=== PATIENT | female | born 1970 | race Caucasian/White ===

== ENCOUNTER → 2017-07-16 | Outpatient (CLI) | payer OTHER | LOC: FIMAGING 07:28 | PROVIDERS: ATTEND Family Medicine | DX: Z12.31 Encounter for screening mammogram for malignant neoplasm of breast (principal); N63 Unspecified lump in breast | CPT/HCPCS: G0202 ==

== ENCOUNTER → 2017-07-31 | Outpatient (CLI) | payer OTHER | LOC: FIMAGING 09:35 | PROVIDERS: ATTEND Family Medicine | DX: R92.8 Other abnormal and inconclusive findings on diagnostic imaging of breast (principal) ==

== ENCOUNTER 2018-10-13 21:12 | Emergency (ER) | payer OTHER ==
[2018-10-13 21:23] VITALS: BP 138/81
[2018-10-13] MEDS ORDERED: BENZOCAINE UNIT DOSE SPRAY HURRICAINE MM ONE (21:40)
[2018-10-13] MEDS ORDERED: LIDOCAINE 2% JELLY 20 ML (UROJECT) ONE (21:40)
--- NOTE | 2018-10-13 21:54 | EDPHY ---
H & P Stated Complaint: CHICKEN STUCK IN THROAT/HX ESOPHAGEAL DILATION X 2 - Personal History LMP (Females 10-55): 15-21 Days Ago Current Tetanus Diphtheria and Acellular Pertussis (TDAP): Yes Tetanus Vaccine Date: 2013 - Medical/Surgical History Hx Asthma: No Hx Chronic Respiratory Disease: No Hx Diabetes: No Hx Cardiac Disease: No Hx Renal Disease: No Hx Cirrhosis: No Hx Alcoholism: No Hx HIV/AIDS: No Hx Splenectomy or Spleen Trauma: No Other PMH: Gerd, Esophageal dilation Dec 2015. - Social History Smoking Status: Never smoked Time Seen by Provider: 10/13/18 21:26 HPI/ROS: CHIEF COMPLAINT: Esophageal foreign body HISTORY OF PRESENT ILLNESS: 48-year-old female prior history of Shotsky ring with prior history of dilatation by Dr. Dat Gonzalez October 2016 was eating chicken this evening, feels esophageal foreign body. Unable to swallow her saliva. PRIMARY CARE PROVIDER: REVIEW OF SYSTEMS: 10 systems reviewed and negative with the exception of the elements mentioned in the history of present illness PAST MEDICAL & SURGICAL HISTORY: schatzki ring history with dilatation. SOCIAL HISTORY: nonsmoker PHYSICAL EXAM (Prior to examination, patient consented to physical exam, hands were washed and my usual and customary physical exam procedures followed) 1) GENERAL: Well-developed, well-nourished, alert and oriented. Appears to be in no acute distress. 2) HEAD: Normocephalic, atraumatic 3) HEENT: Pupils equal, round, reactive to light bilaterally. Sclera anicteric. Nasopharynx, oropharynx, clear, no lesions. Moist Mucous membranes. Unable swallow her secretions. 4) NECK: Full range of motion, no meningeal signs. No crepitus 5) LUNGS: Clear auscultation bilaterally, no wheezes, no rhonchi, no retractions. 6) HEART: Regular rate and rhythm, no murmur, no heave, no gallop. 7) ABDOMEN: No guarding, no rebound, no focal tenderness, negative McBurney's, negative Quick's, negative Rovsing's, negative peritoneal sign, 8) MUSCULOSKELETAL: Moving all extremities, no focal areas of tenderness, no obvious trauma. No peripheral edema or discoloration. 9) BACK: No CVA tenderness, no midline vertebral tenderness, no fluctuance, no step-off, no obvious trauma, no visual or palpable abnormality. 10) SKIN: No rash, no petechiae. 11) Psychiatric: Patient is oriented X 3, there is no agitation. DIFFERENTIAL DIAGNOSIS: In no particular order include but limited to esophageal foreign body, tracheal foreign body, esophageal abrasion (Laura Daily) Constitutional: Initial Vital Signs Temperature (C) 36.8 C 10/13/18 21:21 Heart Rate 95 10/13/18 21:21 Respiratory Rate 18 10/13/18 21:21 Blood Pressure 138/81 H 10/13/18 21:21 O2 Sat (%) 95 10/13/18 21:21 O2 Delivery Mode Room Air Allergies/Adverse Reactions: No Known Allergies Allergy (Verified 10/13/18 21:19) Home Medications: Medication Instructions Recorded NK [No Known Home Meds] 12/30/14 Medical Decision Making Procedures: Procedure: Esophageal foreign body removal. Indication: Risks, benefits, alternatives of the procedure were discussed with the patient and consent obtained. After choosing the most patent nares, which was the left, it was anesthetized with viscous lidocaine. The back of her throat was anesthetized as well. An18 tunisian NG tube was easily placed in the left nares and I was able to push the food bolus into her stomach. She is able to drink without difficulty and produce secretions. There were no complications. The procedure was performed by myself, Dr. Bruce. (Howard Bruce) ED Course/Re-evaluation: At discharge the patient is tolerating oral intake, swallowing her secretions, asymptomatic. She would like to be discharged home. Recommend follow up with Dr. Dat Gonzalez . Usual and customary discharge precautions and instructions provided. Care of patient under supervision of secondary supervising physician Dr Bruce who independently evaluated patient. (Laura Daily) Departure - Departure Disposition: Home, Routine, Self-Care Clinical Impression: Esophageal foreign body Qualifiers: Encounter type: initial encounter Qualified Code(s): T18.108A - Unspecified foreign body in esophagus causing other injury, initial encounter Condition: Good Instructions: Esophageal Foreign Body (ED) Additional Instructions: Return to the ER if you are unable swallow, developed chest pain, abdominal pain , shortness of breath or any other symptoms that concern you. Referrals: Dat Gonzalez MD [[facility] [place] Primary Care Provider] - 2-3 days, call for appt.
== END 2018-10-13 22:09 | disposition home or self-care (01) ==
PROC: 0DC58ZZ Extirpation of Matter from Esophagus, Via Natural or Artificial Opening Endoscopic (ICD-10-PCS; principal; 2018-10-13)
DX: K22.2 Esophageal obstruction (principal); Z87.19 Personal history of other diseases of the digestive system